=== PATIENT | male | born 1960 | race Caucasian/White ===

== ENCOUNTER → 2022-10-30 | Outpatient (CLI) | payer BC ==
[~2022-10-30] MED LIST: ALBUMIN 25% 12.5GM 50ML 200 ML IV ONE; FENTANYL CITRATE/PF 100MCG/2 ML INJ ONE; LIDOCAINE HCL 1% LOCAL INJ 20 ML VIAL ONE; MIDAZOLAM HCL 2 MG/2 ML VIAL ONE; ONDANSETRON HCL INJ 2MG/ML 2ML 2 MG/ML VIAL ONE; SODIUM CHLORIDE 0.9% 250ML 250 ML ONE
[2022-10-30 13:55] LABS: INR 1.21; PROTHROMBIN TIME 15.8 seconds (11.9-14.5)
[2022-10-30 13:56] LABS: PARTIAL THROMBOPLASTIN TIME 32.7 seconds (23.8-35.5)
== END ==
LOC: DX 12:17
PROVIDERS: ATTEND Family Medicine Geriatric Medicine
DX: R18.8 Other ascites (principal)
CPT/HCPCS: 36415; 75989; 76942; 85610; 85730; C1769; J0690; J2001; J2250; J2405; J3010; J7050; 32550; 99152; 99153